=== PATIENT | male | born 1945 | race Caucasian/White ===

== ENCOUNTER → 2016-09-04 | Outpatient (CLI) | payer MEDICARE ==
[~2016-09-04] MED LIST: ASPI-621 PO; DICL100G8 TP; DOCU-30 PO; DOXA2TAB9 PO; FINA1TAB16 PO; FURO-93 PO; HYDR-3307 PO; LOSA50TA6 PO; METO25TA91 PO; MULT-717 PO; OMEG1CAP12 PO; OMEP-110 PO; POTA10TA11 PO; SIME62.5 PO; TAMS0.4C2 PO; VIT1CAPS42 PO; WARF7.5T PO; Will bring list DOS
== END | disposition home or self-care (01) ==
LOC: CFH 09:19
PROVIDERS: ATTEND Internal Medicine Critical Care Medicine
DX: J90 Pleural effusion, not elsewhere classified (principal); J98.11 Atelectasis
CPT/HCPCS: 71250

== ENCOUNTER → 2017-01-23 | Outpatient (CLI) | payer MEDICARE ==
[~2017-01-23] MED LIST changes: -OMEG1CAP12 PO; +OMEG1CAP23 PO
== END | disposition home or self-care (01) ==
LOC: CFH 09:14
PROVIDERS: ATTEND Nurse Practitioner Family
DX: M25.512 Pain in left shoulder (principal); M25.051 Hemarthrosis, right hip; M25.552 Pain in left hip; G89.29 Other chronic pain
CPT/HCPCS: 73523